=== PATIENT | male | born 1980 | race Caucasian/White ===

== ENCOUNTER 2023-04-26 15:35 | Inpatient (IN) | payer OTHER ==
[~2023-04-26] VITALS: Ht 175.3 cm; Wt 115.3 kg
[2023-04-26 16:31] LABS: BASOPHILS % 0.6 % (0.0-2.0); EOSINOPHILS % 0.1 % (0.0-5.0); HEMATOCRIT. 39.1 % (42.0-52.0); HEMOGLOBIN. 13.3 g/dL (14.0-18.0); LYMPHOCYTES % 7.5 % (20.0-50.0); MEAN CORPUSCULAR HEMOGLOBIN 29.5 pg (28.0-32.0); MEAN CORPUSCULAR VOLUME 86.8 fL (80.0-94.0); MEAN PLATELET VOLUME 9.2 fl (7.4-10.4); MONOCYTES % 2.2 % (2.0-8.0); NEUTROPHILS % 89.6 % (40.0-76.0); PLATELET 200 x1000/uL (130-400); RED CELL DISTRIBUTION WIDTH 15.5 % (11.6-14.6); WHITE BLOOD COUNT 16.9 x1000/uL (4.5-11.0)
[2023-04-26 16:43] LABS: PROTHROMBIN TIME 10.6 sec (9.6-11.0)
[2023-04-26 17:01] LABS: CHLORIDE 97 mEq/L (98-107); INDEX HEMOLYSI 1 (1-3); INDEX ICTERIC 1 (1-4); INDEX LIPEMIC 1 (1-3); POTASSIUM 4.5 mEq/L (3.5-5.1); SODIUM 132 mEq/L (136-145)
[2023-04-26 17:09] LABS: ALANINE AMINOTRANSFERASE 28 IU/L (13-61); ALBUMIN 4.3 g/dL (3.4-5.0); ASPARTATE AMINOTRANSFERASE 12 IU/L (15-37); BILIRUBIN TOTAL 0.3 mg/dL (0.1-1.0); CALCIUM 10.2 mg/dL (8.5-10.1); CARBON DIOXIDE 24 mEq/L (21-32); ETHANOL BLOOD < 10 mg/dL (-10); GLUCOSE 311 mg/dL (70-105); LACTIC ACID 2.7 mmol/L (0.4-2.0); PROTEIN TOTAL 9.8 g/dL (6.0-8.3); TROPONIN I HIGH SENSITIVITY 8 ng/L (<78); UREA NITROGEN BLOOD 50 mg/dL (7-21)
[2023-04-26 17:10] LABS: CREATININE 6.4 mg/dL (0.6-1.3)
[2023-04-26] MEDS ORDERED: PIPERACILLIN/TAZ 3.375G PREMIX 50 ML IV ONE (18:15)
[2023-04-26] MEDS ORDERED: ONDANSETRON HCL 4MG/2ML INJ IV ONE (18:15)
[2023-04-26] MEDS ORDERED: MORPHINE SULFATE 4 MG/ML CPJ (NOT FOR IM USE) IV ONE (18:15)
[2023-04-26] MEDS ORDERED: LORAZEPAM 2MG/ML CPJ IV ONE (20:45)
[2023-04-26] MEDS ORDERED: SODIUM CHLORIDE 0.9% 500 ML IV ONE (21:30)
[2023-04-26] MEDS ORDERED: IOHEXOL-300 100 ML BOTTLE ONE (21:56)
[2023-04-27] VITALS (15 sets, daily range): BP systolic 70–177; BP diastolic 44–115; PULSE 105–132; RESP 13–20; TEMP 98.1–99.4
[2023-04-27] MEDS ORDERED: LANTUSUD SUBCUT (02:23)
[2023-04-27] MEDS ORDERED: SEMA0.258 SUBCUT (03:21)
[2023-04-27] MEDS ORDERED: SUCR1TAB PO (03:22)
[2023-04-27] MEDS ORDERED: AMLO5TAB88 PO (03:31)
[2023-04-27] MEDS ORDERED: CLONIDINE 0.1MG TABLET PO PRN (04:00)
[2023-04-27] MEDS ORDERED: HYDROCODONE/ACETAMINOPHEN 5/325MG TABLET PO PRN (04:00)
[2023-04-27] MEDS ORDERED: DEXTROSE 50% WATER 50ML SYRINGE IV PRN (04:15)
[2023-04-27] MEDS ORDERED: NALOXONE HCL 0.4MG/ML VIAL IV PRN (04:15)
[2023-04-27] MEDS: ONDANSETRON HCL 4MG/2ML INJ IV PRN ×3 (05:43→23:54)
[2023-04-27] MEDS: BLOOD SUGAR DIAGNOSTIC STRIP TEST SCH ×4 (06:50→21:00)
[2023-04-27] MEDS: INSULIN LISPRO 100 UNITS/ML SUBCUT SCH ×4 (07:56→21:00)
[2023-04-27 07:57] LABS: CHLORIDE 99 mEq/L (98-107); INDEX HEMOLYSI 1 (1-3); INDEX ICTERIC 1 (1-4); INDEX LIPEMIC 1 (1-3); POTASSIUM 4.2 mEq/L (3.5-5.1); SODIUM 134 mEq/L (136-145)
[2023-04-27] MEDS ORDERED: CLON0.1T PO (08:05)
[2023-04-27 08:08] LABS: ALANINE AMINOTRANSFERASE 24 IU/L (13-61); ALBUMIN 3.8 g/dL (3.4-5.0); ASPARTATE AMINOTRANSFERASE 10 IU/L (15-37); BILIRUBIN TOTAL 0.5 mg/dL (0.1-1.0); CALCIUM 9.9 mg/dL (8.5-10.1); CARBON DIOXIDE 25 mEq/L (21-32); GLUCOSE 201 mg/dL (70-105); PROTEIN TOTAL 8.6 g/dL (6.0-8.3); UREA NITROGEN BLOOD 64 mg/dL (7-21)
[2023-04-27] MEDS ORDERED: HYDR100T31 PO (08:08)
[2023-04-27] MEDS ORDERED: FURO80TA3 PO (08:08)
[2023-04-27] MEDS ORDERED: METO2.5T2 PO (08:09)
[2023-04-27] MEDS ORDERED: METO100T16 PO (08:10)
[2023-04-27] MEDS ORDERED: ONDA4TAB50 PO (08:11)
[2023-04-27 08:14] LABS: HEMATOCRIT. 36.3 % (42.0-52.0); HEMOGLOBIN. 12.1 g/dL (14.0-18.0); MEAN CORPUSCULAR HEMOGLOBIN 28.7 pg (28.0-32.0); MEAN CORPUSCULAR HGB CONC 33.3 g/dL (31.0-37.0); MEAN CORPUSCULAR VOLUME 86.3 fL (80.0-94.0); MEAN PLATELET VOLUME 9.2 fl (7.4-10.4); PLATELET 190 x1000/uL (130-400); RED CELL DISTRIBUTION WIDTH 15.5 % (11.6-14.6); WHITE BLOOD COUNT 16.5 x1000/uL (4.5-11.0)
[2023-04-27 08:20] LABS: DIFFERENTIAL COMMENT 1
[2023-04-27] MEDS: ENOXAPARIN 40MG/0.4ML SYR SUBCUT SCH (08:44)
[2023-04-27 09:56] LABS: CREATININE 7.9 mg/dL (0.6-1.3)
[2023-04-27] MEDS: AMLODIPINE 5MG TABLET PO SCH (11:57)
[2023-04-27] MEDS: SODIUM CHLORIDE 0.45% 1,000 ML IV SCH (11:57)
[2023-04-27] MEDS: INSULIN GLARGINE 100 UNITS/ML SUBCUT SCH ×2 (12:07→22:00)
[2023-04-27] MEDS: METOCLOPRAMIDE HCL 10MG/2ML VIAL IV SCH ×3 (12:47→23:15)
[2023-04-27] MEDS: PIPERACILLIN/TAZOBACTAM 3.375 G in DEXTROSE 5% WATER 50 ML IV SCH ×2 (12:47→23:19)
[2023-04-27] MEDS ORDERED: VANCOMYCIN 2,000 MG in DEXT 5% WATER 500 ML IV NR (13:00)
[2023-04-27 14:44] LABS: HEPATITIS B SURFACE ANTIGEN NEGATIVE
[2023-04-27 14:45] LABS: HEPATITIS B SURFACE ANTIGEN NEGATIVE
[2023-04-27 15:12] LABS: HEPATITIS C VIR.AB 0.13 INDEXVAL (0.00-0.80)
[2023-04-27 15:13] LABS: HEPATITIS C VIR.AB 0.14 INDEXVAL (0.00-0.80)
[2023-04-27 15:14] LABS: HEPATITIS A AB IGM NEGATIVE (NEGATIVE)
[2023-04-27] MEDS: HYDRALAZINE HCL 100MG TABLET PO SCH (16:09)
[2023-04-27] MEDS: METOPROLOL TARTRATE 100MG TABLET PO SCH (16:10)
[2023-04-27 16:41] LABS: ANISOCYTOSIS 1+; PLATELET ESTIMATE NORMAL
[2023-04-28] VITALS (7 sets, daily range): BP systolic 128–172; BP diastolic 96–111; PULSE 74–112; RESP 12–20; TEMP 97.3–98.7; O2SAT 96
[2023-04-28] MEDS ORDERED: MORPHINE SULFATE 2 MG/ML CPJ (NOT FOR IM USE) IV PRN (01:15)
[2023-04-28] MEDS: PANTOPRAZOLE SODIUM 40 MG/VIAL IV SCH ×2 (01:48→10:04)
[2023-04-28] MEDS: METOCLOPRAMIDE HCL 10MG/2ML VIAL IV SCH ×3 (05:29→17:27)
[2023-04-28] MEDS: SODIUM CHLORIDE 0.45% 1,000 ML IV SCH (06:17)
[2023-04-28] MEDS: BLOOD SUGAR DIAGNOSTIC STRIP TEST SCH ×3 (06:22→17:33)
[2023-04-28 06:33] LABS: BASOPHILS % 0.4 % (0.0-2.0); HEMATOCRIT. 37.2 % (42.0-52.0); HEMOGLOBIN. 12.6 g/dL (14.0-18.0); LYMPHOCYTES % 8.9 % (20.0-50.0); MEAN CORPUSCULAR HEMOGLOBIN 29.1 pg (28.0-32.0); MEAN CORPUSCULAR HGB CONC 33.9 g/dL (31.0-37.0); MEAN CORPUSCULAR VOLUME 85.8 fL (80.0-94.0); MONOCYTES % 3.9 % (2.0-8.0); NEUTROPHILS % 86.8 % (40.0-76.0); PLATELET 217 x1000/uL (130-400); RED BLOOD CELL COUNT 4.34 mill/uL (4.7-6.1); WHITE BLOOD COUNT 16.7 x1000/uL (4.5-11.0)
[2023-04-28 07:04] LABS: CHLORIDE 88 mEq/L (98-107); INDEX HEMOLYSI 1 (1-3); INDEX ICTERIC 1 (1-4); INDEX LIPEMIC 1 (1-3); POTASSIUM 4.1 mEq/L (3.5-5.1); SODIUM 129 mEq/L (136-145)
[2023-04-28 07:15] LABS: ALANINE AMINOTRANSFERASE 41 IU/L (13-61); ALBUMIN 3.8 g/dL (3.4-5.0); ASPARTATE AMINOTRANSFERASE 34 IU/L (15-37); BILIRUBIN TOTAL 0.6 mg/dL (0.1-1.0); CALCIUM 8.9 mg/dL (8.5-10.1); CARBON DIOXIDE 26 mEq/L (21-32); GLUCOSE 221 mg/dL (70-105); PROTEIN TOTAL 8.3 g/dL (6.0-8.3); UREA NITROGEN BLOOD 56 mg/dL (7-21)
[2023-04-28 07:19] LABS: CREATININE 8.1 mg/dL (0.6-1.3)
[2023-04-28] MEDS: HYDRALAZINE HCL 100MG TABLET PO SCH ×2 (09:00→17:09)
[2023-04-28] MEDS: METOPROLOL TARTRATE 100MG TABLET PO SCH ×2 (09:00→16:05)
[2023-04-28] MEDS: INSULIN GLARGINE 100 UNITS/ML SUBCUT SCH (10:00)
[2023-04-28] MEDS: ONDANSETRON HCL 4MG/2ML INJ IV PRN ×2 (10:04→14:51)
[2023-04-28] MEDS: ENOXAPARIN 40MG/0.4ML SYR SUBCUT SCH (10:04)
[2023-04-28] MEDS: INSULIN LISPRO 100 UNITS/ML SUBCUT SCH ×3 (10:05→17:20)
[2023-04-28] MEDS: PIPERACILLIN/TAZOBACTAM 3.375 G in DEXTROSE 5% WATER 50 ML IV SCH (10:07)
[2023-04-28] MEDS ORDERED: LABETALOL 5MG/ML SYR 20 MG/4 ML SYRINGE IV PRN (15:45)
[2023-04-28] MEDS: AMLODIPINE 5MG TABLET PO SCH (17:08)
[2023-04-29 14:11] LABS: HEPATITIS B CORE AB IGM NEGATIVE
== END 2023-04-28 19:06 | disposition short-term general hospital (02) | DRG 871 ==
LOC: ER 15:41 → 3WST 21:45
PROVIDERS: ADMIT Internal Medicine; ATTEND Internal Medicine
PROC: 5A1D70Z Performance of Urinary Filtration, Intermittent, Less than 6 Hours Per Day (ICD-10-PCS; principal; 2023-04-27)
PROC: 5A1D70Z Performance of Urinary Filtration, Intermittent, Less than 6 Hours Per Day (ICD-10-PCS; 2023-04-28)
DX: A41.9 Sepsis, unspecified organism (principal); N18.6 End stage renal disease; R65.21 Severe sepsis with septic shock; I12.0 Hypertensive chronic kidney disease with stage 5 chronic kidney disease or end stage renal disease; E11.22 Type 2 diabetes mellitus with diabetic chronic kidney disease; E11.43 Type 2 diabetes mellitus with diabetic autonomic (poly)neuropathy; D64.9 Anemia, unspecified; E11.51 Type 2 diabetes mellitus with diabetic peripheral angiopathy without gangrene; E11.65 Type 2 diabetes mellitus with hyperglycemia; K40.20 Bilateral inguinal hernia, without obstruction or gangrene, not specified as recurrent; K44.9 Diaphragmatic hernia without obstruction or gangrene; K76.0 Fatty (change of) liver, not elsewhere classified; K80.20 Calculus of gallbladder without cholecystitis without obstruction; N20.0 Calculus of kidney; Z79.4 Long term (current) use of insulin; Z89.512 Acquired absence of left leg below knee; Z99.2 Dependence on renal dialysis
CPT/HCPCS: 36415; 71045; 74176; 74177; 80053; 80320; 82962; 83605; 84145; 84484; 85025; 86705; 86709; 86803; 86850; 86900; 87070; 87340; 90935; 93005; 99291; C9113; J1650; J1815; J2060; J2270; J2405; J2543; J2765; J3370; J3490; J7040; J7060; Q9967; G0480